=== PATIENT | female | born 2000 | race African-American/Black ===

== ENCOUNTER 2022-04-10 17:16 | Emergency (ER) | payer OTHER ==
[~2022-04-10] VITALS: Ht 172.7 cm; Wt 84.0 kg
[2022-04-10] MEDS ORDERED: KETOROLAC 30MG/ML VIAL IV STA (20:59)
[2022-04-10] MEDS ORDERED: SODIUM CHLORIDE 0.9% 1,000 ML IV ONE (21:00)
[2022-04-10 21:59] LABS: BASOPHILS % 0.5 % (0.0-2.0); EOSINOPHILS % 0.3 % (0.0-5.0); HEMATOCRIT. 39.2 % (36.0-48.0); HEMOGLOBIN. 13.2 g/dL (12.0-16.0); LYMPHOCYTES % 33.6 % (20.0-50.0); MEAN PLATELET VOLUME 9.1 fl (7.4-10.4); MONOCYTES % 6.6 % (2.0-8.0); PLATELET 337 x1000/uL (130-400); RED BLOOD CELL COUNT 4.26 mill/uL (4.2-5.4); RED CELL DISTRIBUTION WIDTH 13.4 % (11.6-14.6)
[2022-04-10 22:09] LABS: CHLORIDE 105 mEq/L (98-107)
[2022-04-10 22:14] LABS: HCG SCREEN NEGATIVE
[2022-04-10 23:59] VITALS: BP 113/67
[2022-04-11] MEDS ORDERED: IBUP-2028 MT (01:45)
== END 2022-04-11 02:20 | disposition home or self-care (01) ==
LOC: ER 17:37
DX: M54.50 Low back pain, unspecified (principal); M54.2 Cervicalgia; R51.9 Headache, unspecified; M54.6 Pain in thoracic spine; R20.0 Anesthesia of skin; G89.11 Acute pain due to trauma; M48.02 Spinal stenosis, cervical region; Z59.01 Sheltered homelessness; W01.0XXA Fall on same level from slipping, tripping and stumbling without subsequent striking against object, initial encounter; Y93.01 Activity, walking, marching and hiking; Y92.098 Other place in other non-institutional residence as the place of occurrence of the external cause
CPT/HCPCS: 36415; 70450; 72141; 72146; 72148; 80053; 84703; 85025; 96361; 96374; 99284; J1885; J7030

== ENCOUNTER 2023-10-11 22:22 | Emergency (ER) | payer OTHER, MEDICAID ==
[~2023-10-11] VITALS: Ht 165.1 cm; Wt 84.0 kg
[~2023-10-11 22:22] MED LIST: IBUP-2028 MT
[2023-10-11 22:27] VITALS: BP 121/77; PULSE 94; RESP 16; TEMP 98.2; O2SAT 100
[2023-10-11 23:01] LABS: CLARITY URINE CLEAR (CLEAR); COLOR URINE YELLOW (YELLOW); GLUCOSE URINE NEGATIVE (NEGATIVE); KETONES URINE NEGATIVE (NEGATIVE); LEUKOCYTE ESTERASE URINE NEGATIVE (NEGATIVE); NITRITE URINE NEGATIVE (NEGATIVE); OCCULT BLOOD URINE 1+ (NEGATIVE); PH URINE 5.5 (4.5-8.0); PROTEIN URINE NEGATIVE (NEGATIVE); SPECIFIC GRAVITY URINE 1.034 (1.005-1.030); UROBILINOGEN URINE 0.2 E.U./dL (0.2-1.0)
[2023-10-11 23:10] LABS: BASOPHILS % 0.4 % (0.0-2.0); EOSINOPHILS % 1.2 % (0.0-5.0); HEMATOCRIT. 36.4 % (36.0-48.0); HEMOGLOBIN. 12.5 g/dL (12.0-16.0); LYMPHOCYTES % 21.9 % (20.0-50.0); MEAN CORPUSCULAR HGB CONC 34.2 g/dL (31.0-37.0); MEAN CORPUSCULAR VOLUME 90.8 fL (81.0-99.0); MEAN PLATELET VOLUME 8.3 fl (7.4-10.4); MONOCYTES % 8.3 % (2.0-8.0); NEUTROPHILS % 68.2 % (40.0-76.0); PLATELET 286 x1000/uL (130-400); RED BLOOD CELL COUNT 4.01 mill/uL (4.2-5.4); RED CELL DISTRIBUTION WIDTH 13.8 % (11.6-14.6)
[2023-10-11 23:15] LABS: WBC URINE 0-2 /hpf (0-2)
[2023-10-11 23:15] LABS: CHLORIDE 105 mEq/L (98-107); POTASSIUM 3.9 mEq/L (3.5-5.1); SODIUM 139 mEq/L (136-145)
[2023-10-11 23:16] LABS: BACTERIA URINE NONE SEEN; RBC URINE 0-2 /hpf (0-2); SQUAMOUS EPITHELIAL CELL URINE RARE /lpf (RARE/1+)
[2023-10-11 23:16] LABS: CALCIUM 9.4 mg/dL (8.7-10.4); CARBON DIOXIDE 26 mEq/L (21-32)
[2023-10-11 23:21] LABS: CREATININE 0.9 mg/dL (0.6-1.0); GLUCOSE 89 mg/dL (70-105)
[2023-10-11 23:22] LABS: UREA NITROGEN BLOOD 15 mg/dL (9-23)
[2023-10-11 23:23] LABS: ALANINE AMINOTRANSFERASE 15 IU/L (10-49); ASPARTATE AMINOTRANSFERASE 17 IU/L (<34)
[2023-10-11 23:24] LABS: BILIRUBIN TOTAL 0.4 mg/dL (0.1-1.0); PROTEIN TOTAL 8.6 g/dL (6.0-8.3)
[2023-10-11] MEDS: SODIUM CHLORIDE 0.9% 1,000 ML IV ONE (23:30)
[2023-10-11] MEDS: LOPERAMIDE HCL 2MG CAPSULE PO ONE (23:30)
[2023-10-12] MEDS ORDERED: LOPE2CAP MT (01:10)
[2023-10-12] MEDS ORDERED: ONDA4TAB11 PO (01:10)
== END 2023-10-12 03:22 | disposition home or self-care (01) ==
LOC: ER 22:22
DX: R19.7 Diarrhea, unspecified (principal); R10.9 Unspecified abdominal pain; R11.0 Nausea
CPT/HCPCS: 99283; 96360; 80053; 81003; 81025; 83690; 85025; 36415; J7030

== ENCOUNTER 2024-02-25 09:25 | Emergency (ER) | payer OTHER ==
[~2024-02-25] VITALS: Ht 165.1 cm; Wt 88.0 kg
[~2024-02-25 09:25] MED LIST changes: +LOPE2CAP MT; +ONDA-239 PO
[2024-02-25 09:52] VITALS: O2SAT 100
[2024-02-25] MEDS: BALANCED SALT IRRIG SOLN 15ML IR ONE (12:30)
[2024-02-25] MEDS: TETRACAINE 0.5% OPHTH DROPS 4ML RIGHTEYE ONE (12:30)
[2024-02-25] MEDS: FLUORESCEIN SODIUM 1MG/STRIP RIGHTEYE ONE (12:30)
[2024-02-25] MEDS ORDERED: CIPR2.5D20 EACHEYE (12:45)
[2024-02-25 12:54] VITALS: BP 122/78; PULSE 70; RESP 18; TEMP 36.66960; O2SAT 100
== END 2024-02-25 12:54 | disposition home or self-care (01) ==
LOC: ER 09:25
DX: H10.89 Other conjunctivitis (principal)
CPT/HCPCS: 99283

== ENCOUNTER 2025-01-28 01:48 | Emergency (ER) | payer OTHER ==
[~2025-01-28] VITALS: Ht 165.1 cm; Wt 91.0 kg
[~2025-01-28 01:48] MED LIST changes: +CIPR2.5D20 EACHEYE
[2025-01-28 02:00] VITALS: O2SAT 98
[2025-01-28 02:33] LABS: CLARITY URINE CLEAR (CLEAR); COLOR URINE YELLOW (YELLOW); GLUCOSE URINE NEGATIVE (NEGATIVE); KETONES URINE NEGATIVE (NEGATIVE); LEUKOCYTE ESTERASE URINE 2+ (NEGATIVE); NITRITE URINE NEGATIVE (NEGATIVE); OCCULT BLOOD URINE 1+ (NEGATIVE); PH URINE 6.5 (4.5-8.0); PROTEIN URINE NEGATIVE (NEGATIVE); SPECIFIC GRAVITY URINE 1.011 (1.005-1.030); UROBILINOGEN URINE 0.2 E.U./dL (0.2-1.0)
[2025-01-28 03:24] LABS: SQUAMOUS EPITHELIAL CELL URINE FEW /lpf (RARE/1+)
[2025-01-28 03:25] LABS: WBC URINE 15-25 /hpf (0-2)
[2025-01-28 03:35] LABS: BASOPHILS % 0.3 % (0.0-2.0); EOSINOPHILS % 0.3 % (0.0-5.0); HEMATOCRIT. 35.7 % (36.0-48.0); HEMOGLOBIN. 12.2 g/dL (12.0-16.0); LYMPHOCYTES % 21.7 % (20.0-50.0); MEAN PLATELET VOLUME 8.6 fl (7.4-10.4); MONOCYTES % 8.7 % (2.0-8.0); NEUTROPHILS % 69.0 % (40.0-76.0); PLATELET 293 x1000/uL (130-400); RED BLOOD CELL COUNT 3.95 mill/uL (4.2-5.4); RED CELL DISTRIBUTION WIDTH 13.6 % (11.6-14.6)
[2025-01-28 03:40] LABS: BACTERIA URINE 1+
[2025-01-28 04:34] LABS: CREATININE 0.9 mg/dL (0.6-1.0)
[2025-01-28 04:35] LABS: UREA NITROGEN BLOOD 14 mg/dL (9-23)
[2025-01-28 04:36] LABS: ASPARTATE AMINOTRANSFERASE 15 IU/L (<34)
[2025-01-28 04:37] LABS: BILIRUBIN DIRECT < 0.1 mg/dL (<=3.0); BILIRUBIN TOTAL 0.3 mg/dL (0.1-1.0); PROTEIN TOTAL 7.0 g/dL (6.0-8.3)
[2025-01-28] MEDS ORDERED: CEPH500T MT (04:51)
[2025-01-28] MEDS ORDERED: NAPR-1176 MT (04:51)
[2025-01-28 05:07] VITALS: BP 137/83; PULSE 87; RESP 14; TEMP 37; O2SAT 100
== END 2025-01-28 05:33 | disposition home or self-care (01) ==
LOC: ER 02:17
DX: N12 Tubulo-interstitial nephritis, not specified as acute or chronic (principal); F17.200 Nicotine dependence, unspecified, uncomplicated; Z79.899 Other long term (current) drug therapy
CPT/HCPCS: 36415; 76700; 80048; 80076; 81003; 81025; 85025; 87077; 87186; 99284